=== PATIENT | female | born 1970 | race Hispanic/Latino ===

== ENCOUNTER 2022-08-01 01:55 | Emergency (ER) | payer SELFPAY ==
[2022-08-01] MEDS ORDERED: Ketorolac Tromethamine 30 MG/ML VIAL ONE (04:45)
[2022-08-01] MEDS ORDERED: Dexamethasone 10 MG/ML VIAL ONE (04:45)
== END 2022-08-01 04:55 | disposition home or self-care (01) ==
LOC: ERS 01:55
DX: J02.9 Acute pharyngitis, unspecified (principal); E11.9 Type 2 diabetes mellitus without complications; I10 Essential (primary) hypertension; E78.5 Hyperlipidemia, unspecified
CPT/HCPCS: 87081; 87430; 96372; 99283; J1100; J1885

== ENCOUNTER 2022-08-05 10:57 | Emergency (ER) | payer SELFPAY ==
[2022-08-05] MEDS ORDERED: cefTRIAXone (ROCEPHIN) 1 GM VIAL ONE (12:12)
[2022-08-05] MEDS ORDERED: Dexamethasone 10 MG/ML VIAL ONE (12:12)
[2022-08-05] MEDS ORDERED: Lidocaine 1% MPF 2 ML VIAL ONE (12:12)
[2022-08-05] MEDS ORDERED: Ketorolac Tromethamine 30 MG/ML VIAL ONE (12:12)
[2022-08-05 12:54] LABS: MONO NEGATIVE CONTROL ZONE White (Negative) (White); Mononucleosis NEGATIVE (NEGATIVE)
[2022-08-05 12:55] LABS: MONO POSITIVE CONTROL Pink Line (Positive) (PINK/RED)
== END 2022-08-05 13:39 | disposition home or self-care (01) ==
LOC: ERS 10:57
DX: J02.9 Acute pharyngitis, unspecified (principal); I10 Essential (primary) hypertension; E78.5 Hyperlipidemia, unspecified; E11.9 Type 2 diabetes mellitus without complications
CPT/HCPCS: 36415; 86308; 96372; 99284; J0696; J1100; J1885